=== PATIENT | male | born 1970 | race Two or more races ===

== ENCOUNTER 2025-03-25 10:00 | Day surgery (SDC) | payer OTHER ==
[2025-03-23 10:35] VITALS: BP 130/80
[2025-03-23 11:16] LABS: URINE APPEARANCE Clear; URINE BILIRRUBIN Negative (NEGATIVE); URINE BLOOD Negative; URINE COLOR Yellow; URINE GLUCOSE Negative (NEGATIVE); URINE KETONE Negative (NEGATIVE); URINE LEUKOCYTE Negative; URINE NITRATE Negative; URINE PROTEIN Negative (NEGATIVE); URINE UROBILINOGEN 0.2 E.U./dl
[2025-03-23 11:22] LABS: URINE BACTERIA 0 uL (0.0-1933); URINE CAST 0.00 uL (0.0-1.40); URINE EPITHELIAL CELLS 0.0 uL (0.0-38.8); URINE RBC 0.8 uL (0.0-20.8); URINE WBC 0.3 uL (0.0-23.2)
[2025-03-23 12:10] LABS: BASO % 0.7 % (0.1-1.2); EOS # 0.08 (0.04-0.54); EOS % 1.9 % (0.7-7.0); LYMPH # 1.22 (1.18-3.74); LYMPH % 28.8 % (19.3-53.1); MEAN PLATELET VOLUME 10.10 fl (9.4-12.4); MONO # 0.43 (0.24-0.82); MONO % 10.2 % (4.7-12.5); NEUT # 2.46 (1.56-6.13); NEUT % 58.2 % (34.0-71.1); RED CELL DISTRIBUTION WIDTH 11.8 % (11.6-14.4)
[2025-03-23 12:30] LABS: INR 1.0
[2025-03-23 12:59] LABS: ALT/SGPT 31.0 U/L (12-78); AST/SGOT 17.0 U/L (15-37); BILIRUBIN TOTAL 0.52 mg/dL (0.3-1.2); BUN CREA RATIO 11.0 (7.0-25.0); CREATININE SERUM 1.15 mg/dL (0.70-1.30); GFR 65.78; GLOBULINA 3.3 G/DL (2.4-3.5); GLUCOSE FASTING 84.0 mg/dL (65-100); OSMOLALITY SERUM 284.0 MOSM/KG (275-295)
[~2025-03-25] VITALS: Ht 167.6 cm; Wt 64.0 kg
[~2025-03-25 10:00] MED LIST: ZESTRIL10 M1 PO
[2025-03-25] MEDS ORDERED: ENOXAPARIN SODIUM 40 MG/0.4 ML SYRINGE SUBCUTANEO ONE (11:02)
[2025-03-25] MEDS ORDERED: CEFAZOLIN SODIUM 1,000 MG VIAL ONE (11:03)
[2025-03-25] MEDS ORDERED: BUPIVACAINE HCL/MPF 0.5% 30ML VIAL ONE (11:14)
[2025-03-25] MEDS ORDERED: ACETAMINOPHEN325 M1 PO (11:23)
[2025-03-25] MEDS ORDERED: CELEBREX200MG PO (11:23)
[2025-03-25] MEDS ORDERED: NEURONTIN800 MG PO (11:23)
[2025-03-25] MEDS ORDERED: TAMS0.4C PO (11:24)
[2025-03-25] MEDS ORDERED: SUGAMMADEX SODIUM 200 MG/2 ML VIAL IV ONE (12:42)
[2025-03-25] MEDS ORDERED: SIMETHICONE80 MG PO (13:22)
[2025-03-25] MEDS ORDERED: BACTRIM DS TAB1 EACH PO (13:22)
== END 2025-03-25 17:00 | disposition home or self-care (01) ==
LOC: CIR.AMB 10:00
PROVIDERS: Urology; ATTEND Surgery
DX: K40.90 Unilateral inguinal hernia, without obstruction or gangrene, not specified as recurrent (principal); K42.0 Umbilical hernia with obstruction, without gangrene
CPT/HCPCS: 49650; 49594; 15734; C1781